=== PATIENT | male | born 1995 | race Caucasian/White ===

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

== ENCOUNTER 2019-07-13 00:42 | Emergency (ER) | payer SELFPAY ==
[2019-07-13 01:02] VITALS: BP 127/90
--- NOTE | 2019-07-13 04:19 | Emergency Department Report ---
Chief Complaint: Urogenital-Male Stated Complaint: PAIN IN URINE Time Seen by Provider: 07/13/19 04:14 - HPI History of Present Illness: Patient presents for penile discharge and dysuria 3 days, there is no fevers /chills, no abdominal pain, no abdominal tenderness, no nausea/ vomiting. Patient appears well and is nontoxic. MSE exam complete and patient does not have an emergency medical condition. Patient will follow-up with local health department for treatment for STD and HIV screening. Patient verbalizes agreement and understanding with this plan and has departed ED at this time. - Exam Vital Signs: Vital Signs 07/13/19 00:59 Temperature 97.8 F Pulse Rate 86 Respiratory 18 Rate Blood Pressure 127/90 O2 Sat by Pulse 97 Oximetry MSE screening note: Focused history and physical exam performed. Due to findings the following was ordered: ED Medical Decision Making - Medical Decision Making MSE Exam completed, pt will follow up with Health Department for evaluation and treatment for STI. pt departed ed in stable condition at this time. ED Disposition for MSE Clinical Impression: STD (sexually transmitted disease) Disposition: Z- MED SCREENING EXAM-LEFT Is pt being admited?: No Does the pt Need Aspirin: No Condition: Stable Instructions: Sexually Transmitted Diseases (ED) Referrals: Joon [facility] [Outside] - [facility] [Outside] - [facility] Time of Disposition: 04:19
== END 2019-07-13 04:27 | disposition left against medical advice (07) ==
LOC: ED 00:42
DX: A64 Unspecified sexually transmitted disease (principal)
CPT/HCPCS: 99282

== ENCOUNTER 2020-10-12 18:05 | Emergency (ER) | payer SELFPAY ==
[2020-10-12 18:12] VITALS: BP 139/81
--- NOTE | 2020-10-12 18:38 | XRay Report ---
CHEST 2 VIEWS INDICATION / CLINICAL INFORMATION: chest pain. COMPARISON: None available. FINDINGS: SUPPORT DEVICES: None. HEART / MEDIASTINUM: No significant abnormality. LUNGS / PLEURA: No significant pulmonary or pleural abnormality. No pneumothorax. ADDITIONAL FINDINGS: No significant additional findings. IMPRESSION: 1. No acute findings. Signer Name: Aaron Hector MD Signed: 10/12/2020 6:33 PM Workstation Name: [id number]
--- NOTE | 2020-10-12 20:51 | Emergency Department Report ---
ED Chest Pain HPI - General Chief Complaint: Chest Pain Stated Complaint: CHEST PAIN Source: patient Mode of arrival: Ambulatory Limitations: No Limitations - History of Present Illness Initial Comments: 25-year-old -[place] male presents to the emergency room complaining of left chest pain intermittently for the last 3 days. Patient states the pain will come and go that is sharp. Patient denies any nausea no vomiting no shortness of breath no radiation of pain. Patient states when the pain comes it lasts about 3 to 5 seconds. 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 Patient reports no past medical history surgical history is appendectomy. He takes no medications on a daily basis nothing makes it worse nothing makes it better and has no primary care provider. MD Complaint: chest pain Onset/Timin -: days(s) Pain Location: left chest Pain Radiation: none Severity scale (0 -10): 0 Quality: sharp Consistency: intermittent (last for 3-5 sec) Improves With: nothing Worsens With: nothing re: denies: nausea, vomting, diaphoresis, dyspnea, sense of impending doom Treatments Prior to Arrival: none - Related Data Previous Rx's Medication Instructions Recorded Last Taken Type Ibuprofen [Motrin] 400 mg PO Q8H PRN #30 tablet 10/15/16 Unknown Rx hydrOXYzine HCL [Atarax] 10 mg PO QHS #20 tablet 10/15/16 Unknown Rx Naproxen [Naprosyn] 500 mg PO BID #20 tablet 10/21/18 Unknown Rx Sulfamethoxazole/Trimethoprim 1 each PO BID #6 tablet 10/21/18 Unknown Rx [Bactrim DS TAB] traMADoL [Ultram] 50 mg PO Q6HR PRN #7 tablet 10/21/18 Unknown Rx Allergies Allergy/AdvReac Type Severity Reaction Status Date / Time Penicillins AdvReac Rash Verified 10/15/16 18:28 Heart Score - HEART Score History: Slightly suspicious EKG: Normal Age: < 45 Risk factors: No known risk factors Troponin: < normal limit HEART Score: 0 - EKG Read Time Time EKG Completed: 18:11 EKG Read Time: 18:14 ED Review of Systems ROS: Stated complaint: CHEST PAIN Other details as noted in HPI Comment: All other systems reviewed and negative ED Past Medical Hx - Surgical History Hx Appendectomy: Yes - Social History Smoking Status: Never Smoker Substance Use Type: None - Medications Home Medications: Home Medications Medication Instructions Recorded Confirmed Last Taken Type Ibuprofen [Motrin] 400 mg PO Q8H PRN #30 tablet 10/15/16 Unknown Rx hydrOXYzine HCL [Atarax] 10 mg PO QHS #20 tablet 10/15/16 Unknown Rx Naproxen [Naprosyn] 500 mg PO BID #20 tablet 10/21/18 Unknown Rx Sulfamethoxazole/Trimethoprim 1 each PO BID #6 tablet 10/21/18 Unknown Rx [Bactrim DS TAB] traMADoL [Ultram] 50 mg PO Q6HR PRN #7 tablet 10/21/18 Unknown Rx ED Physical Exam - General Limitations: No Limitations General appearance: alert, in no apparent distress - Head Head exam: Present: atraumatic, normocephalic - Eye Eye exam: Present: normal appearance - ENT ENT exam: Present: mucous membranes moist - Neck Neck exam: Present: normal inspection - Respiratory Respiratory exam: Present: normal lung sounds bilaterally. Absent: respiratory distress, chest wall tenderness, accessory muscle use - Cardiovascular Cardiovascular Exam: Present: regular rate, normal rhythm. Absent: systolic murmur, diastolic murmur, rubs, gallop - GI/Abdominal GI/Abdominal exam: Present: soft, normal bowel sounds - Rectal Rectal exam: Present: deferred - Extremities Exam Extremities exam: Present: normal inspection - Back Exam Back exam: Present: normal inspection - Neurological Exam Neurological exam: Present: alert, oriented X3, normal gait - Psychiatric Psychiatric exam: Present: normal affect, normal mood - Skin Skin exam: Present: warm, dry, intact, normal color. Absent: rash ED Course Vital Signs 10/12/20 18:10 Temperature 98.3 F Pulse Rate 85 Respiratory 20 Rate Blood Pressure 139/81 [Right] O2 Sat by Pulse 100 Oximetry ISAIAH score - Isaiah Score Age > 65: (0) No Aspirin use within the Past 7 Days: (0) No 3 or more CAD Risk Factors: (0) No 2 or more Angina events in past 24 hrs: (0) No Known CAD with more than 50% Stenosis: (0) No Elevated Cardiac Markers: (0) No ST Deviation Greater than 0.5mm: (0) No ISAIAH Score: 0 ED Medical Decision Making - Radiology Data Radiology results: report reviewed [facility] [address] [place] [address] XRay Report Signed Patient: NANDO ARANDA MR#: [id number] : 1995 Acct:[id number] Age/Sex: 25 / M ADM Date: 10/12/20 Loc: ED Attending Dr: Ordering Physician: STEPHEN ARTHUR MD Date of Service: 10/12/20 Procedure(s): XR chest routine 2V Accession Number(s): [id number] cc: STEPHEN ARTHUR MD Fluoro Time In Minutes: CHEST 2 VIEWS INDICATION / CLINICAL INFORMATION: chest pain. COMPARISON: None available. FINDINGS: SUPPORT DEVICES: None. HEART / MEDIASTINUM: No significant abnormality. LUNGS / PLEURA: No significant pulmonary or pleural abnormality. No pneumothorax. ADDITIONAL FINDINGS: No significant additional findings. IMPRESSION: 1. No acute findings. Signer Name: Aaron Hector MD Signed: 10/12/2020 6:33 PM Workstation Name: [id number] Transcribed By: JENNIFER Dictated By: Aaron Hector MD Electronically Authenticated By: Aaron Hector MD Signed Date/Time: 10/12/201832 DD/ 32 TD/TT: - Medical Decision Making 25-year-old -[place] male presents to the emergency room complaining of left chest pain intermittently for the last 3 days. Patient states the pain will come and go that is sharp. Patient denies any nausea no vomiting no short ness of breath no radiation of pain. Patient states when the pain comes it lasts about 3 to 5 seconds. 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 Patient reports no past medical history surgical history is appendectomy. He takes no medications on a daily basis nothing makes it worse nothing makes it better and has no primary care provider. The patient is resting comfortably and feeling better, is alert and in no distress. The repeat examination is unremarkable and benign. The electrocardiogram shows no signs of acute ischemia and the history, exam, diagnostic testing and current condition do not suggest that this patient is having acute myocardial infarction, significant arrhythmia, unstable angina, esophageal perforation, pulmonary embolism, aortic dissection, pneumothorax, severe pneumonia, sepsis or other significant pathology that would warrant further testing, continued ED treatment, admission, or cardiology or other specialist consultation at this point. The vital signs have been stable. The patient's condition is stable and appropriate for discharge. The patient will pursue further outpatient evaluation with primary care physician, other designated physician or pouch maker. The patient and/or caregiver have expressed a clear in thorough understanding and agrees to the follow-up as instructed. Critical care attestation.: If time is entered above; I have spent that time in minutes in the direct care of this critically ill patient, excluding procedure time. ED Disposition Clinical Impression: Atypical chest pain Disposition: DC-01 TO HOME OR SELFCARE Is pt being admited?: No Does the pt Need Aspirin: No Condition: Stable Instructions: Nonspecific Chest Pain, Adult, [id number], Pain Without a Known Cause Additional Instructions: EKG within normal limits chest x-ray is within normal limits exam is within normal limits. I recommend for you to follow-up with your primary care provider. Referrals: TYRON CASTELLON MD [Staff Physician] - 3-5 Days
--- NOTE | 2020-10-14 11:12 | Electrocardiograph Report ---
[facility] Test Date: 2020-10-12 Test Time: 18:11:53 Pat Name: NANDO ARANDA Department: Room: Gender: M Manager Cancer: JANINE : 1995 Requested By: DOLORES BORJAS Order Number: [id number] Reading MD: Romain Lunsford Measurements Intervals [place] Rate: 90 P: 62 [place]: 159 QRS: 59 QRSD: 84 T: 38 QT: 324 QTc: 398 Interpretive Statements Sinus rhythm ST elev, probable normal early repol pattern No previous ECG available for comparison Electronically Signed On 10-14-2020 11:11:54 EDT by Romain Lunsford
== END 2020-10-12 21:00 | disposition home or self-care (01) ==
LOC: ED 18:05
DX: R07.89 Other chest pain (principal); Z79.899 Other long term (current) drug therapy; Z90.49 Acquired absence of other specified parts of digestive tract; Z88.0 Allergy status to penicillin
CPT/HCPCS: 71046; 93005